=== PATIENT | male | born 1950 | race Caucasian/White ===

== ENCOUNTER 2018-11-17 07:49 | Outpatient (CLI) | payer OTHER | END 2018-11-17 23:59 | disposition home or self-care (01) | LOC: RAD 07:49 | PROVIDERS: ATTEND Family Medicine | DX: K22.2 Esophageal obstruction (principal); I48.0 Paroxysmal atrial fibrillation; I10 Essential (primary) hypertension; E78.5 Hyperlipidemia, unspecified; I42.9 Cardiomyopathy, unspecified; F10.230 Alcohol dependence with withdrawal, uncomplicated; Z88.6 Allergy status to analgesic agent; Z88.1 Allergy status to other antibiotic agents; Z88.5 Allergy status to narcotic agent; Z88.7 Allergy status to serum and vaccine; Z88.8 Allergy status to other drugs, medicaments and biological substances | CPT/HCPCS: 74220 ==